=== PATIENT | male | born 1940 | race Caucasian/White ===

== ENCOUNTER 2017-09-15 02:51 | Outpatient (CLI) | payer MEDICARE, BC | END 2017-09-15 23:59 | disposition home or self-care (01) | LOC: DIABETIC 02:51 | PROVIDERS: ATTEND Internal Medicine | DX: E11.9 Type 2 diabetes mellitus without complications (principal) | CPT/HCPCS: G0108 ==

== ENCOUNTER 2017-12-14 11:47 | Observation (INO) | payer MEDICARE, BC ==
[~2017-12-14] VITALS: Ht 172.7 cm; Wt 95.5 kg
[2017-12-14 12:19] LABS: BASOPHILS % (AUTO) 0.6 % (0-1); EOSINOPHILS # (AUTO) 0.1 X10'3 (0-0.9); EOSINOPHILS % (AUTO) 1.2 % (0-6); HEMATOCRIT 43.8 % (42.0-52.0); HEMOGLOBIN 15.4 g/dl (14.0-17.9); LYMPHOCYTES # (AUTO) 1.8 X10'3 (1.1-4.8); MEAN CORPUSCULAR HEMOGLOBIN 31.7 PG (27.0-31.0); MEAN CORPUSCULAR HGB CONC 35.3 % (33.0-36.5); MEAN CORPUSCULAR VOLUME 89.8 FL (78-98); MEAN PLATELET VOLUME 7.3 FL (7.4-10.4); MONOCYTES # (AUTO) 0.6 X10'3 (0-0.9); MONOCYTES % (AUTO) 10.5 % (2-12); NEUTROPHILS # (AUTO) 3.1 X10'3 (1.8-7.7); NEUTROPHILS % (AUTO) 55.7 % (42-75); PLATELET COUNT 179 X10'3 (140-440); RED BLOOD COUNT 4.88 X10'6 (4.70-6.10); RED CELL DISTRIBUTION WIDTH 12.5 % (11.5-14.5); WHITE BLOOD COUNT 5.5 X10'3 (4.5-11.0)
[2017-12-14] MEDS ORDERED: LOVA20TA2 PO (12:30)
[2017-12-14] MEDS ORDERED: FENO145T38 PO (12:30)
[2017-12-14] MEDS ORDERED: GLYB2.5T4 PO (12:30)
[2017-12-14 12:34] LABS: PARTIAL THROMBOPLASTIN TIME 26 SECONDS (22-32); PROTHROMBIN TIME 10.3 SECONDS (9.0-12.0)
[2017-12-14 12:42] LABS: ALANINE AMINOTRANSFERASE 27 U/L (12-78); ALBUMIN 4.3 G/DL (3.4-5.0); ALBUMIN/GLOBULIN RATIO 1.5 (1.1-1.5); ALKALINE PHOSPHATASE 47 IU/L (46-116); ANION GAP 11 (8-16); ASPARTATE AMINO TRANSFERASE 17 U/L (10-37); BILIRUBIN,TOTAL 0.3 MG/DL (0.1-1.0); BLOOD UREA NITROGEN 17 MG/DL (7-18); BUN/CREATININE RATIO 19.5 (5.4-32.0); CALCIUM 8.7 MG/DL (8.5-10.1); CHLORIDE 103 MMOL/L (99-107); CREATININE 0.87 MG/DL (0.60-1.10); GLUCOSE 112 MG/DL (70-104); POTASSIUM 3.9 MMOL/L (3.5-5.1); SODIUM 138 MMOL/L (135-145); TOTAL CARBON DIOXIDE 24.3 MMOL/L (24-32); TOTAL PROTEIN 7.2 G/DL (6.4-8.2); eGFR 86 ML/MIN
[2017-12-14] MEDS ORDERED: regadenoson 0.4mg/5ml syringe IV ONE (14:45)
[2017-12-14] MEDS ORDERED: magnesium hydroxide 30ml (MOM) UD suspension PO PRN (14:45)
[2017-12-14] MEDS ORDERED: metoprolol tartrate 1mg/ml inj IV PRN (14:45)
[2017-12-14] MEDS ORDERED: mag hydrox/Alum hydrox/simeth 30ml oral suspension PO PRN (14:45)
[2017-12-14] MEDS ORDERED: acetaminophen 325mg tablet PO PRN (14:45)
[2017-12-14] MEDS ORDERED: dextrose 50%-water 50ml dispensing syringe IV PRN ×2 (14:45)
[2017-12-14] MEDS ORDERED: insulin Lispro (HumaLOG) vial - multi-dose SQ SCH (14:45)
[2017-12-14] MEDS ORDERED: MESSAGE TO PHARMACY PO ONE (14:45)
[2017-12-14] MEDS ORDERED: CAFFEINE CITRATE 60 MG/3 ML injection vial IV PRN (14:45)
[2017-12-14] MEDS ORDERED: ondansetron/PF 4mg/2ml inj IV PRN (14:45)
[2017-12-14] MEDS ORDERED: nitroGLYCERIN 0.4mg SUBLingual tab SL PRN (14:45)
[2017-12-14] MEDS ORDERED: glucagon, human recombinant 1mg kit SUBCUT PRN (14:45)
[2017-12-14] MEDS ORDERED: dextrose ORAL solution 15 GM/59 ML bottle PO PRN ×2 (14:45)
[2017-12-14 15:14] LABS: HEMOGLOBIN A1C 6.2 % (4.5-6.2)
[2017-12-14 15:15] LABS: CHOLESTEROL 191 MG/DL (0-200); HDL CHOLESTEROL 38 MG/DL (35-60); LDL CHOLESTEROL 110 MG/DL (50-100); TRIGLYCERIDES 352 MG/DL (20-135)
[2017-12-14 16:00] VITALS: BP 158/58
[2017-12-14 19:00] VITALS: BP 142/62
[2017-12-14] MEDS ORDERED: temazepam 15mg capsule PO PRN (21:00)
[2017-12-14] MEDS ORDERED: insulin glargine (Lantus) pen - multi-dose SQ SCH (21:00)
[2017-12-14 23:00] VITALS: BP 140/70
[2017-12-15] VITALS (13 sets, daily range): BP systolic 118–164; BP diastolic 47–76
[2017-12-15 06:36] LABS: ANION GAP 13 (8-16); BLOOD UREA NITROGEN 14 MG/DL (7-18); BUN/CREATININE RATIO 15.7 (5.4-32.0); CALCIUM 9.1 MG/DL (8.5-10.1); CHLORIDE 104 MMOL/L (99-107); CREATININE 0.89 MG/DL (0.60-1.10); GLUCOSE 101 MG/DL (70-104); POTASSIUM 4.2 MMOL/L (3.5-5.1); SODIUM 140 MMOL/L (135-145); eGFR 83 ML/MIN
[2017-12-15 07:07] LABS: BASOPHILS % (AUTO) 0.4 % (0-1); EOSINOPHILS # (AUTO) 0.1 X10'3 (0-0.9); EOSINOPHILS % (AUTO) 1.3 % (0-6); HEMOGLOBIN 15.9 g/dl (14.0-17.9); LYMPHOCYTES # (AUTO) 1.4 X10'3 (1.1-4.8); LYMPHOCYTES % (AUTO) 27.8 % (21-51); MEAN CORPUSCULAR HEMOGLOBIN 30.9 PG (27.0-31.0); MEAN CORPUSCULAR HGB CONC 34.6 % (33.0-36.5); MEAN CORPUSCULAR VOLUME 89.4 FL (78-98); MEAN PLATELET VOLUME 7.5 FL (7.4-10.4); MONOCYTES # (AUTO) 0.4 X10'3 (0-0.9); MONOCYTES % (AUTO) 8.7 % (2-12); NEUTROPHILS # (AUTO) 3.2 X10'3 (1.8-7.7); NEUTROPHILS % (AUTO) 61.8 % (42-75); PLATELET COUNT 161 X10'3 (140-440); RED BLOOD COUNT 5.15 X10'6 (4.70-6.10); RED CELL DISTRIBUTION WIDTH 12.4 % (11.5-14.5); WHITE BLOOD COUNT 5.1 X10'3 (4.5-11.0)
[2017-12-15] MEDS ORDERED: fenofibrate 145mg tablet PO SCH (08:00)
[2017-12-15] MEDS ORDERED: atorvastatin 10mg tablet PO SCH (08:00)
[2017-12-15] MEDS ORDERED: aspirin 81mg tablet.DR PO SCH (08:00)
[2017-12-15] MEDS ORDERED: CAFFEINE CITRATE 60 MG/3 ML injection vial IV ONE (08:24)
[2017-12-15] MEDS ORDERED: regadenoson 0.4mg/5ml syringe IV ONE (08:24)
[2017-12-15] MEDS ORDERED: ASPI-1071 PO (11:41)
== END 2017-12-15 12:44 | disposition home or self-care (01) ==
LOC: ER 11:48 → ED HOLD 14:44 → EDBEDREQ 15:10 → PCU 3S 15:40 → CMPBEDREQ 19:30
PROVIDERS: ADMIT Hospitalist; ATTEND Hospitalist
DX: R07.89 Other chest pain (principal); E11.9 Type 2 diabetes mellitus without complications; E78.5 Hyperlipidemia, unspecified; E78.00 Pure hypercholesterolemia, unspecified; M19.90 Unspecified osteoarthritis, unspecified site; Z87.891 Personal history of nicotine dependence
CPT/HCPCS: 36415; 71045; 78452; 80048; 80053; 80061; 82948; 83036; 84439; 84443; 84484; 85025; 85610; 85730; 87070; 93017; 96374; 99285; A9500; G0378; 93005; J1815

== ENCOUNTER 2018-01-21 04:51 | Outpatient (CLI) | payer MEDICARE, BC ==
[~2018-01-21 04:51] MED LIST: ASPI-1071 PO; FENO145T38 PO; GLYB2.5T4 PO; LOVA20TA2 PO
== END 2018-01-21 23:59 | disposition home or self-care (01) ==
LOC: DIABETIC 04:51
PROVIDERS: ATTEND Internal Medicine
DX: E11.9 Type 2 diabetes mellitus without complications (principal); Z79.82 Long term (current) use of aspirin; Z88.0 Allergy status to penicillin; Z87.891 Personal history of nicotine dependence
CPT/HCPCS: G0108

== ENCOUNTER 2018-04-27 08:00 | Outpatient (CLI) | payer MEDICARE, BC | END 2018-04-27 23:59 | disposition home or self-care (01) | LOC: DIABETIC 08:00 | PROVIDERS: ATTEND Internal Medicine | DX: E11.9 Type 2 diabetes mellitus without complications (principal); Z88.0 Allergy status to penicillin; Z79.82 Long term (current) use of aspirin; Z87.891 Personal history of nicotine dependence | CPT/HCPCS: G0108 ==

== ENCOUNTER 2018-08-31 02:21 | Outpatient (CLI) | payer MEDICARE, BC | END 2018-08-31 23:59 | disposition home or self-care (01) | LOC: DIABETIC 02:21 | PROVIDERS: ATTEND Internal Medicine | DX: E11.9 Type 2 diabetes mellitus without complications (principal); Z79.82 Long term (current) use of aspirin; Z88.0 Allergy status to penicillin | CPT/HCPCS: G0108 ==

== ENCOUNTER 2018-12-20 04:55 | Outpatient (CLI) | payer MEDICARE, BC | END 2018-12-20 23:59 | disposition home or self-care (01) | LOC: DIABETIC 04:55 | PROVIDERS: ATTEND Internal Medicine | DX: E11.9 Type 2 diabetes mellitus without complications (principal); Z79.899 Other long term (current) drug therapy; Z88.0 Allergy status to penicillin | CPT/HCPCS: G0108 ==

== ENCOUNTER 2019-04-06 01:47 | Outpatient (CLI) | payer MEDICARE, BC | END 2019-04-06 23:59 | disposition home or self-care (01) | LOC: DIABETIC 01:47 | PROVIDERS: ATTEND Internal Medicine | DX: E11.9 Type 2 diabetes mellitus without complications (principal); Z79.82 Long term (current) use of aspirin; Z79.899 Other long term (current) drug therapy; Z88.0 Allergy status to penicillin | CPT/HCPCS: G0108 ==